=== PATIENT | female | born 1940 | race Caucasian/White ===

== ENCOUNTER 2019-06-26 12:37 | Inpatient (IN) | payer OTHER ==
[~2019-06-26] VITALS: Ht 170.2 cm; Wt 74.8 kg
[2019-06-26] MEDS ORDERED: TOPROL XL25 M1 PO (12:46)
[2019-07-03] MEDS ORDERED: CEFDINIR300 MG PO (08:26)
[2019-07-03] MEDS ORDERED: LASIX20 MG PO (08:27)
== END 2019-07-03 14:24 | disposition home or self-care (01) | DRG 181 ==
LOC: ER 12:37 → SURH 22:37 → ICU-2 22:37 → ICU 06-27 20:43 → SURH 06-29 19:42
PROVIDERS: ADMIT Internal Medicine
PROC: BB24Y0Z Computerized Tomography (CT Scan) of Bilateral Lungs using Other Contrast, Unenhanced and Enhanced (ICD-10-PCS; 2019-06-26)
PROC: BW28ZZZ Computerized Tomography (CT Scan) of Head (ICD-10-PCS; 2019-06-26)
PROC: 4A033R1 Measurement of Arterial Saturation, Peripheral, Percutaneous Approach (ICD-10-PCS; 2019-06-26)
PROC: 3E0F7GC Introduction of Other Therapeutic Substance into Respiratory Tract, Via Natural or Artificial Opening (ICD-10-PCS; 2019-06-27)
PROC: 8E0ZXY6 Isolation (ICD-10-PCS; 2019-06-27)
PROC: 0T9B70Z Drainage of Bladder with Drainage Device, Via Natural or Artificial Opening (ICD-10-PCS; 2019-06-27)
PROC: 0W9930Z Drainage of Right Pleural Cavity with Drainage Device, Percutaneous Approach (ICD-10-PCS; principal; 2019-06-29)
DX: C34.31 Malignant neoplasm of lower lobe, right bronchus or lung (principal); J44.1 Chronic obstructive pulmonary disease with (acute) exacerbation; J91.0 Malignant pleural effusion; J98.11 Atelectasis; C77.1 Secondary and unspecified malignant neoplasm of intrathoracic lymph nodes; R09.02 Hypoxemia; R31.29 Other microscopic hematuria; E04.8 Other specified nontoxic goiter; I10 Essential (primary) hypertension; Z90.2 Acquired absence of lung [part of]